=== PATIENT | male | born 1995 | race Caucasian/White ===

== ENCOUNTER → 2023-02-08 18:44 | Outpatient (CLI) | payer OTHER, SELFPAY ==
--- NOTE | 2023-02-08 18:49 | DI.MRI.S_ITS ---
PROCEDURE: MR ANKLE RT WO CON INDICATIONS: RT ANKLE PAIN TECHNIQUE: Noncontrast sagittal T1 spin echo and T2 fast spin echo with fat saturation, axial proton density fast spin echo and T2 fast spin echo with fat saturation, coronal T1 spin echo and T2 fast spin echo with fat saturation through the ankle/hindfoot. COMPARISON: None. FINDINGS: Image quality: Excellent. Bones and joints: No bone marrow contusions or fractures. No hindfoot coalitions. No osteochondral injuries of the talar dome. Subchondral edema is seen at the 2nd tarsometatarsal joint. Osseous edema is seen at the posterior calcaneus adjacent to the Achilles tendon insertion. A small amount of fluid is seen in the retrocalcaneal bursa. Minimal degenerative spurring of the dorsal talonavicular joint. Medial structures: Remote prior low-grade sprain of the deep fibers of the deltoid ligament. The spring ligament components are intact. Mild distal posterior tibialis tenosynovitis. The flexor digitorum longus and flexor hallucis longus tendons are intact. The posterior tibial neurovascular bundle appears normal within the tarsal tunnel, without extrinsic mass effect. Lateral structures: At least high-grade and likely complete tearing of the anterior talofibular ligament. Remote prior low-grade sprain of the calcaneofibular ligament. The posterior talofibular ligament is intact. The anterior talofibular, calcaneofibular, and posterior talofibular ligaments appear intact. The anterior and posterior tibiofibular ligaments appear intact. The peroneus longus and brevis tendons demonstrate normal location and morphology. The sinus tarsi demonstrates normal fatty signal. Anterior structures: The tibialis anterior, extensor hallucis longus, and extensor digitorum longus tendons appear intact. Posterior and plantar structures: Mild Achilles tendinosis. The proximal plantar fascia is intact. No abductor digiti quinti muscle atrophy to suggest Vasquez neuropathy. IMPRESSION: 1. Small amount of fluid in the retrocalcaneal bursa is suspicious for mild bursitis. Mild edema in the adjacent posterior calcaneus is likely reactive versus secondary to traction trabecular bone injury from the Achilles tendon insertion. 2. Mild Achilles tendinosis. 3. Chronic complete tearing of the anterior talofibular ligament. Remote prior grade 1 sprain of the calcaneofibular ligament. 4. Remote prior low-grade sprain of the deltoid ligament. 5. Mild distal posterior tibialis tenosynovitis. 6. [id number] degenerative changes at the 2nd tarsometatarsal joint with subchondral edema. Approved by: Samuel Tidwell M.D. on 02/09/2023 at 9:27
== END ==
PROVIDERS: Referring Provider Podiatrist; Visit Provider Podiatrist
DX: M76.61 Achilles tendinitis, right leg (principal); M25.471 Effusion, right ankle; S93.491A Sprain of other ligament of right ankle, initial encounter; S83.8X1A Sprain of other specified parts of right knee, initial encounter; M65.9 Synovitis and tenosynovitis, unspecified
CPT/HCPCS: 73721

== ENCOUNTER → 2023-09-22 18:46 | Outpatient (CLI) | payer OTHER, SELFPAY ==
--- NOTE | 2023-09-22 18:49 | DI.MRI.S_ITS ---
PROCEDURE: MR ANKLE LT WO CON INDICATIONS: PAIN IN LEFT ANKLE TECHNIQUE: Noncontrast sagittal T1 spin echo and T2 fast spin echo with fat saturation, axial proton density fast spin echo and T2 fast spin echo with fat saturation, coronal T1 spin echo and T2 fast spin echo with fat saturation through the ankle/hindfoot. COMPARISON: None. FINDINGS: Image quality: Excellent. Bones and joints: No acute trabecular bone injury or fracture. No hindfoot coalitions. No osteochondral injuries of the talar dome. Small amount of fluid is seen in the tibiotalar and subtalar joints. Medial structures: The deltoid ligament and the spring ligament complex are intact. The small amount of fluid in the posterior tibialis, flexor digitorum longus, and flexor hallucis longus tendon sheath is likely related to the tibiotalar joint fluid. No focal tendon tearing. The posterior tibial neurovascular bundle appears normal within the tarsal tunnel, without extrinsic mass effect. Lateral structures: The anterior talofibular, calcaneofibular, and posterior talofibular ligaments are intact. The anterior and posterior tibiofibular ligaments are intact. Mild peroneus brevis and longus tendinosis. The sinus tarsi demonstrates normal fatty signal. Anterior structures: The tibialis anterior, extensor hallucis longus, and extensor digitorum longus tendons appear intact. Posterior and plantar structures: Achilles tendon is mildly thickened compatible with tendinosis. Moderate fluid is seen in the retrocalcaneal bursa. The proximal plantar fascia is intact. No abductor digiti minimi muscle atrophy to suggest Vasquez neuropathy. IMPRESSION: 1. Small retrocalcaneal bursal effusion or mild bursitis. 2. Mild Achilles tendinosis. 3. Mild tendinosis of the peroneus brevis and longus tendons. 4. Small nonspecific tibiotalar and subtalar effusions. Approved by: Samuel Tidwell M.D. on 09/26/2023 at 11:09
== END ==
PROVIDERS: Referring Provider Podiatrist; Visit Provider Podiatrist
DX: M79.672 Pain in left foot (principal); M76.62 Achilles tendinitis, left leg; M25.572 Pain in left ankle and joints of left foot; M25.472 Effusion, left ankle
CPT/HCPCS: 73721